=== PATIENT | female | born 1975 | race Asian ===

== ENCOUNTER 2023-06-27 04:15 | Day surgery (SDC) | payer OTHER ==
[2023-06-26 13:41] VITALS: BMI 22.1
[2023-06-27 10:00] VITALS: TEMP 97.6
[2023-06-27 10:36] VITALS: RESP 19
[2023-06-27 10:37] VITALS: BP 110/67; PULSE 66
[2023-06-27 11:07] LABS: BLOOD UREA NITROGEN 6.8 mg/dL (7-18); CALCIUM 8.6 mg/dL (8.5-10.1)
[2023-06-27 11:11] LABS: CREATININE 0.6 mg/dL (0.55-1.3)
[2023-06-27 11:19] LABS: POTASSIUM 3.8 mmol/L (3.5-5.1)
== END 2023-06-27 10:37 | disposition home or self-care (01) ==
LOC: JASU-ENDO 04:15
PROVIDERS: ATTEND Internal Medicine Gastroenterology
PROC: 0DBH8ZX Excision of Cecum, Via Natural or Artificial Opening Endoscopic, Diagnostic (ICD-10-PCS; principal; 2023-06-27 08:45)
DX: Z12.11 Encounter for screening for malignant neoplasm of colon (principal); K63.89 Other specified diseases of intestine; K64.8 Other hemorrhoids
CPT/HCPCS: 36415; 80048; 81025; 88305-TC

== ENCOUNTER 2023-09-04 04:04 | Inpatient (IN) | payer OTHER ==
[2023-09-02 14:30] VITALS: BMI 22.8
[2023-09-04] MEDS ORDERED: PROPOFOL 20 ML ONE (07:57)
[2023-09-04] MEDS ORDERED: DEXAMETHASONE SOD PHOSPHATE 4 MG/1 ML VIAL ONE (07:58)
[2023-09-04] MEDS ORDERED: ONDANSETRON 4 MG/2 ML VIAL ONE (07:58)
[2023-09-04] MEDS ORDERED: MIDAZOLAM HCL 2 MG/2 ML SINGLE DOSE VIAL ONE ×2 (07:58→08:43)
[2023-09-04] MEDS ORDERED: ONDANSETRON 4 MG/2 ML VIAL IVPUSH PRN ×3 (08:14→10:59)
[2023-09-04] MEDS ORDERED: morphine SULFATE/PF 1 MG/2 ML (2cc Syringe - QUVA) IT ONE (08:38)
[2023-09-04] MEDS ORDERED: ceFAZolin SODIUM 1 GM VIAL ONE (08:55)
[2023-09-04] MEDS ORDERED: ceFAZolin SODIUM 1 GM VIAL IVPB ONE ×2 (08:55→08:59)
[2023-09-04] MEDS ORDERED: KETOROLAC TROMETHAMINE 30 MG/1 ML VIAL ONE (09:49)
[2023-09-04] MEDS ORDERED: ACETAMINOPHEN 1000 MG/100 ML BAG IVPB ONE (10:54)
[2023-09-04] MEDS ORDERED: oxyCODONE HCL 5 MG TABLET PO PRN ×2 (10:55)
[2023-09-04] MEDS ORDERED: NALOXONE HCL 0.4 MG/ML VIAL IVPUSH PRN (10:55)
[2023-09-04] MEDS ORDERED: DOCUSATE SODIUM 100 MG CAPSULE (FP) PO PRN (10:59)
[2023-09-04] MEDS ORDERED: BISACODYL 5 MG TABLET.DR (FP) PO PRN (10:59)
[2023-09-04] MEDS ORDERED: SIMETHICONE 80 MG TAB.CHEW (FP) PO PRN (10:59)
[2023-09-04] MEDS: LACTATED RINGERS SOLUTION 1,000 ML IV SCH (12:50)
[2023-09-04] MEDS: IBUPROFEN 800 MG/8 ML IJ IVPB SCH ×2 (15:59→19:28)
[2023-09-04] MEDS ORDERED: CEFAZOLIN 1 GM in DEXTROSE 5%-WATER - 50 ML IVPB SCH (16:45)
[2023-09-04] MEDS ORDERED: ACETAMINOPHEN 1000 MG/100 ML BAG IVPB SCH (17:00)
[2023-09-04] MEDS: ACETAMINOPHEN 1000 MG/100 ML BAG IVPB SCH ×2 (17:00→22:48)
[2023-09-04] MEDS ORDERED: ACETAMINOPHEN 325 MG TABLET (FP) PO SCH (17:00)
[2023-09-04] MEDS: CEFAZOLIN 1 GM in DEXTROSE 5%-WATER - 50 ML IVPB SCH (17:37)
[2023-09-04] MEDS ORDERED: FAMOTIDINE 20 MG TABLET PO SCH (22:00)
[2023-09-05] MEDS: LACTATED RINGERS SOLUTION 1,000 ML IV SCH (00:30)
[2023-09-05] MEDS: CEFAZOLIN 1 GM in DEXTROSE 5%-WATER - 50 ML IVPB SCH ×2 (00:43→08:43)
[2023-09-05] MEDS: ACETAMINOPHEN 1000 MG/100 ML BAG IVPB SCH (05:58)
[2023-09-05 08:08] LABS: HEMOGLOBIN 9.6 GM/dL (10.7-15.3); MCH 28.5 pg (25.7-33.7); MCHC 33.2 g/dl (32.0-36.0); MEAN CELL VOLUME 85.8 fl (80-96); MEAN PLT VOLUME 7.2 fl (7.5-11.1); PLATELET COUNT 289 10^3/uL (134-434); RBC 3.38 M/mm3 (3.60-5.2); WHITE BLOOD COUNT 10.2 K/mm3 (4.0-10.0)
[2023-09-05 08:29] LABS: POTASSIUM 3.9 mmol/L (3.5-5.1)
[2023-09-05 08:32] LABS: CALCIUM 8.3 mg/dL (8.5-10.1)
[2023-09-05 08:36] LABS: CREATININE 0.6 mg/dL (0.55-1.3)
[2023-09-05] MEDS ORDERED: oxyCODONE HCL 5 MG TABLET PO PRN ×2 (09:00)
[2023-09-05] MEDS ORDERED: ENOXAPARIN NA (PORCINE) 40 MG/0.4 ML DISP.SYRIN SQ SCH (10:00)
[2023-09-05] MEDS ORDERED: IBUPROFEN 600 MG TABLET (FP) PO PRN (10:00)
[2023-09-05] MEDS ORDERED: ACETAMINOPHEN 325 MG TABLET (FP) PO SCH (11:00)
[2023-09-05 14:01] VITALS: BP 118/69; PULSE 72; RESP 17; TEMP 98.4
[2023-09-05] MEDS ORDERED: oxyCODONE HCL 10 MG SUSTAINED ACTING TABLET PO SCH (22:00)
== END 2023-09-05 15:45 | disposition home or self-care (01) | DRG 743 ==
LOC: J2C 04:04 → J3W 13:18
PROVIDERS: ADMIT Specialist; ATTEND Specialist
PROC: 0UT70ZZ Resection of Bilateral Fallopian Tubes, Open Approach (ICD-10-PCS; 2023-09-04)
PROC: 0UT90ZZ Resection of Uterus, Open Approach (ICD-10-PCS; principal; 2023-09-04 08:00)
DX: D25.9 Leiomyoma of uterus, unspecified (principal); N83.9 Noninflammatory disorder of ovary, fallopian tube and broad ligament, unspecified
CPT/HCPCS: 36415; 80048; 81025; 85027; 86900; 88305-TC; 88307-TC; 94010; 94760

== ENCOUNTER 2024-06-02 20:49 | Emergency (ER) | payer OTHER ==
[2024-06-02 20:58] VITALS: BP 131/75; PULSE 69; RESP 18; TEMP 98.1; BMI 21.2
[2024-06-02] MEDS ORDERED: ONDANSETRON 4 MG/2 ML VIAL ONE (21:28)
[2024-06-02] MEDS: LACTATED RINGERS SOLUTION 1000 ML INFUS.BAG IV ONE (21:45)
[2024-06-02] MEDS: ONDANSETRON 4 MG/2 ML VIAL IVPUSH ONE (21:46)
[2024-06-02 22:05] LABS: BASO % 0.2 % (0-2.0); HEMATOCRIT 38.4 % (32.4-45.2); HEMOGLOBIN 13.2 GM/dL (10.7-15.3); LYMPH % 9.9 % (8-40); MCH 29.4 pg (25.7-33.7); MCHC 34.4 g/dl (32.0-36.0); MEAN CELL VOLUME 85.5 fl (80-96); MEAN PLT VOLUME 7.1 fl (7.5-11.1); MONO % 3.5 % (3.8-10.2); NEUT % 86.4 % (42.8-82.8); PLATELET COUNT 357 10^3/uL (134-434); RBC 4.49 M/mm3 (3.60-5.2); RDW 13.3 % (11.6-15.6); WHITE BLOOD COUNT 9.5 K/mm3 (4.0-10.0)
[2024-06-02 22:30] LABS: BLOOD UREA NITROGEN 9.1 mg/dL (7-18); CALCIUM 9.2 mg/dL (8.5-10.1)
[2024-06-02 22:33] LABS: CREATININE 0.7 mg/dL (0.55-1.3)
[2024-06-02 22:35] LABS: BILIRUBIN,TOTAL 0.6 mg/dL (0.2-1); TOT PROT 7.7 g/dl (6.4-8.2)
[2024-06-02] MEDS ORDERED: FAMOTIDINE 20 MG/50 ML IVPB 20 MG/50 ML MG IVPB ONE (22:37)
[2024-06-02] MEDS ORDERED: MAG HYDROX/AL HYDROX/SIMETH 30 ML UNIT-DOSE CUP ONE (22:37)
[2024-06-02 22:39] LABS: LACTIC ACID 2.9 mmol/L (0.4-2.0)
[2024-06-02] MEDS: FAMOTIDINE 20 MG/50 ML IVPB 20 MG/50 ML MG IVPB ONE (22:41)
[2024-06-02] MEDS: MAG HYDROX/AL HYDROX/SIMETH -MYLANTA- ORAL SUSPENSION PO ONE (22:41)
== END 2024-06-03 04:03 | disposition home or self-care (01) ==
LOC: JER 20:49
PROC: 3E033GC Introduction of Other Therapeutic Substance into Peripheral Vein, Percutaneous Approach (ICD-10-PCS; principal; 2024-06-02)
DX: R10.13 Epigastric pain (principal); R10.33 Periumbilical pain; R11.2 Nausea with vomiting, unspecified
CPT/HCPCS: 36415; 74177-TC; 80053; 83605; 83690; 84484; 84703; 85025; 86480; 93005; 93010; 99285-25; Q9967

== ENCOUNTER → 2024-10-29 | Day surgery (SDC) | payer OTHER | END | disposition home or self-care (01) | LOC: FMAMMOTONE 10:06 | PROVIDERS: ATTEND Specialist | PROC: 0HBU3ZX Excision of Left Breast, Percutaneous Approach, Diagnostic (ICD-10-PCS; principal; 2024-10-29) | DX: N60.12 Diffuse cystic mastopathy of left breast (principal); N60.32 Fibrosclerosis of left breast; N60.82 Other benign mammary dysplasias of left breast; N64.89 Other specified disorders of breast; R92.1 Mammographic calcification found on diagnostic imaging of breast | CPT/HCPCS: 19081; 76098-TC-FY; 88305-TC ==